=== PATIENT | female | born 2000 | race Caucasian/White ===

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

== ENCOUNTER 2019-02-23 09:53 | Emergency (ER) | payer OTHER ==
[~2019-02-23] VITALS: Ht 162.6 cm; Wt 95.3 kg
[2019-02-23 10:01] VITALS: Ht 162.6 cm; Wt 95.3 kg
[2019-02-23 10:40] LABS: BASOPHIL % 0.3 % (0-2)
[2019-02-23 10:50] LABS: PLATELET COUNT 425 x10^3mcL (130-400)
[2019-02-23 11:21] LABS: CALCIUM 8.7 mg/dL (8.5-10.1); CHLORIDE SERUM 106 mmol/L (98-107); CREATININE SERUM 0.6 mg/dL (0.6-1.0); GFR1 > 60 mL/min; GLUCOSE SERUM 106 mg/dL (74-106); POTASSIUM SERUM 4.1 mmol/L (3.5-5.1); SODIUM SERUM 139 mmol/L (136-145)
[2019-02-23 11:26] LABS: ALBUMIN 3.5 g/dL (3.4-5.0); ALKALINE PHOSPHATASE 70 U/L (46-116); ALT/SGPT 25 U/L (14-59); AST/SGOT 17 U/L (15-37); BILIRUBIN TOTAL 0.39 mg/dL (0.20-1.00); LIPASE 178 IU/L (73-393)
[2019-02-23 11:27] LABS: TOTAL PROTEIN, SERUM 8.3 g/dL (6.4-8.2)
[2019-02-23 13:15] VITALS: BP 135/77
== END 2019-02-23 13:15 | disposition home or self-care (01) ==
LOC: ED 09:53
PROVIDERS: Emergency Medicine
DX: E86.0 Dehydration (principal); D72.829 Elevated white blood cell count, unspecified; R11.10 Vomiting, unspecified; R19.7 Diarrhea, unspecified; R10.13 Epigastric pain; R51 Headache
CPT/HCPCS: 87046; 87046-59; J1885; J2405; J3490